=== PATIENT | female | born 1990 | race Caucasian/White ===

== ENCOUNTER 2025-09-12 15:45 | Emergency (ER) | payer BC, SELFPAY ==
[2025-09-12] VITALS (9 sets, daily range): BP systolic 131–198; BP diastolic 92–134; BMI 36.7
[2025-09-12 16:14] LABS: Hematocrit 43.5 % (37.0-47.0); Hemoglobin 15.0 g/dL (12.0-16.0); Mean Corp Hgb Conc. 34.5 g/dL (33.0-37.0); Mean Corpuscular Volume 84.1 fL (81.0-99.0); Nucleated Red Blood Cells % 0 %; Platelet Count 239 10^3/uL (130-400); Red Cell Dist. Width 12.1 % (11.5-14.5)
[2025-09-12 16:25] LABS: HCG, Serum Qualitative Screen Negative
[2025-09-12 16:36] LABS: Troponin I < 0.012 ng/ml
[2025-09-12 16:44] LABS: ALT (SGPT) 35 U/L (0-35); AST (SGOT) 24 U/L (14-36); Albumin 5.0 g/dl (3.5-5.0); Alkaline Phosphatase 73 U/L (38-126); Blood Urea Nitrogen 13 mg/dl (7-17); Calcium 9.6 mg/dl (8.4-10.2); Carbon Dioxide 23 mmol/L (22-30); Chloride 105 mmol/L (98-107); Glucose 101 mg/dl (70-99); Potassium 4.0 mmol/L (3.5-5.1); Sodium 137 mmol/L (135-145); Total Protein 8.1 g/dl (6.3-8.2); eGFR > 60.00
--- NOTE | 2025-09-12 18:39 | ED.GENMED ---
History of Present Illness
General
Chief Complaint: Chest Pain
Source: patient
Exam Limitations: none
Time Seen by Provider: 09/12/25 17:34
Nursing documentation reviewed up to this point in time: agreed with
History of Present Illness
History of Present Illness:
35-year-old female presenting with a chief complaint of chest pain and a sensation of 'pressure like balloons' in the arms. This started earlier today with a strange, sensation on the right side of her face. Blood pressure at that time was recorded
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 Subsequent to that, she experienced pain and pressure in the chest, described as moving around between the shoulder blades and ribs. The chest pain is described as mid-chest, non-radiating
to the neck. She has used Pepcid occasionally in the past. She has an appointment scheduled with her primary care doctor tomorrow.
Denies fever/chills, n/v, headache. The chest pain is rated as 4/10 and gets swollen sensation in left arm when the CP comes. The facial sensation has not returned. Admits to having been stressed with family issues over the past weekend.
Past History
Past History
ED Past Medical History: None
ED Past Surgical History: None
Social History
Tobacco: Non-smoker
Alcohol: None
Drug: None
Personal: Single
Living: with family
Review of Systems
Review of Systems
Allergies reviewed?: Yes
All Other Systems: ROS reviewed and negative except as documented in HPI and ROS
Phy Exam
Physical Exam
Physical Exam:
GENERAL: No acute distress. A&Ox3.
CONSTITUTIONAL: Afebrile.
EYES: clear, conjunctivae normal
ENMT: moist mucus membranes
RESPIRATORY: Regular respirations, nonlabored, lungs clear.
CARDIOVASCULAR: Regular rate and rhythm, no murmurs, no rubs.
GI: Soft, nontender, normal BS
MUSCULOSKELETAL: Moves with ease. Well perfused.
SKIN: Warm, dry, pink
PSYCH: Normal mood and affect. Well kept, interactive and appropriate
NEUROLOGIC: Awake, alert and oriented. No focal neurological deficits
Scores
Heart Score for Chest Pain Patients
STEMI patient?: Not applicable
Course
Orders/Labs/Results
Orders:
Orders
09/12/25
Electrocardiogram (*1) Stat
Comment: DONE EMR
09/12/25 15:56
Test Result ONCE
09/12/25 16:06
CBC/With Diff [Complete Blood Count/With Diff] Urgent
CMP [Comprehensive Metabolic Panel] Urgent
, Serum Qualitative Screen [HCG, Serum Qualitative Screen] Urgent
Troponin I Urgent
09/12/25 17:33
CR Chest - 2 Views Urgent
Comment:
Reason For Exam: CP radiates to back and down arms
Abnormal Lab Results
09/12/25
16:06
MPV 10.9 H fL
(7.4-10.4)
Glucose 101 H mg/dl
(70-99)
09/12/25 16:06
09/12/25 16:06
Vital Signs
Initial and Last Documented VS:
Initial Vital Signs
Temp Pulse Resp BP Pulse Ox
97.9 F 97 15 198/124 98
09/12/25 15:52 09/12/25 15:52 09/12/25 15:52 09/12/25 15:52 09/12/25 15:52
Last Documented Vital Signs
Temp Pulse Resp BP Pulse Ox
97.9 F 75 24 131/92 96
09/12/25 15:52 09/12/25 19:00 09/12/25 19:00 09/12/25 19:00 09/12/25 19:00
MDM/Problems Addressed
Differential Diagnosis Includes:
GERD, musculoskeletal pain, anxiety/stress related symptoms.
MDM/Problems Addressed:
35-year-old female presenting with a chief complaint of chest pain and a sensation of 'pressure like balloons' in the arms. This started earlier today with a strange, sensation on the right side of her face. Blood pressure at that time was recorded
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 Subsequent to that, she experienced pain and pressure in the chest, described as moving around between the shoulder blades and ribs. The chest pain is described as mid-chest, non-radiating
to the neck. She has used Pepcid occasionally in the past. She has an appointment scheduled with her primary care doctor tomorrow.
Denies fever/chills, n/v, headache. The chest pain is rated as 4/10 and gets swollen sensation in left arm when the CP comes. The facial sensation has not returned. Admits to having been stressed with family issues over the past weekend.
CBC, CMP normal
troponin normal
EKG NSR with sinus arrhythmia
After discussing neg findings and reassuring her nothing worrisome in workup, asks, 'so what should I do about these chest pains and arms?'
Offered Toradol, Protonix, she does not like to take medicne, Ibuprofen upsets her stomach, she does not want to 'mask the symptoms.' She states Tylenol upsets her stomach
She states she can take Excedrin.
She has an appoint with her PCP tomorrow morning
*Pulse Oximetry
SaO2: 97
Oxygen Mode of Delivery: Room air
Patient hypoxic: no
*EKG
EKG Intrepretation Date: 09/12/25
Interpretation: normal
Heart Rate: 80
Rate: normal
Rhythm: sinus arrhythmia
[place]: normal axis
Interval: normal interval
QRS Pattern: normal QRS
Ischemia: no ischemia
*Critical Care Note
Total Time (30-74mins, 75-104mins- exclusive of procedures): Not Applicable
ED Attending Note
-
Portions of this chart may have been created with voice recognition software.� Occasional wrong word or��sound alike� substitutions may have occurred due to the inherent limitations of voice recognition software.
Discharge Plan
Departure
Patient Disposition: Home (Routine Discharge)
Date of Disposition: 09/12/25
Time of Disposition: 18:46
Patient with high blood pressure during this ER visit?: No
Condition: Good
Discharge Problem:
Atypical chest pain
Instructions: Chest Pain That Is Not Caused by the Heart (DC), Acid Reflux and GERD in Adults (DC)
Referrals:
Franck De La Rosa MD [Family Provider, Family Practice] - Keep scheduled appt
Activity Restrictions/Additional Instructions:
As we discussed, keep your appointment with your doctor tomorrow
Your workup here today shows nothing worrisome. Specifically, no sign of a heart attack or your heart being damaged or the cause of your symptoms. No sign of dehydration, infection, your kidney and liver functions are normal.
Your EKG is normal and your chest x-ray is normal
Take your Pepcid again tonight and again tomorrow morning. Let your doctor know if it helps
For the pains I would recommend you take your Excedrin (with food) and let your doctor know if it helps
Interventions
Interventions:
*Risk Screen - Suicide Last Done: 09/12/25 15:52
*General Assessment Last Done: 09/12/25 15:52
*Neglect/Abuse Screening Last Done: 09/12/25 15:52
*ED- Fall Risk Assessment Last Done: 09/12/25 17:22
*ED COVID-19 Vaccine History Last Done: 09/12/25 15:52
*ED Influenza Vaccine History Last Done: 09/12/25 15:52
*Nursing Disposition Last Done: 09/12/25 19:13
ED- Cardiac Assessment Last Done: 09/12/25 17:22
Discharge Date and Time
Discharge Date/Time: 09/12/25 19:15
Print Language: [id number]
== END 2025-09-12 19:15 | disposition home or self-care (01) ==
LOC: EMR 15:45
PROVIDERS: Student in an Organized Health Care Education/Training Program; EMERGENCY PHYSICIAN Student in an Organized Health Care Education/Training Program; FAMILY PHYSICIAN Family Medicine
DX: R07.89 Other chest pain (principal); Z63.9 Problem related to primary support group, unspecified
CPT/HCPCS: 99284; 71046; 80053; 84484; 84703; 85025; 93005